=== PATIENT | female | born 1970 ===

== ENCOUNTER 2017-08-05 21:12 | Emergency (ER) | payer BC ==
[~2017-08-05] VITALS: Ht 157.5 cm; Wt 74.8 kg
--- NOTE | 2017-08-05 21:35 | NUR ---
Pt is received alert, responsive as she came in c/o itching and Hiva all over body. MD is at the bedside as her care continue.
--- NOTE | 2017-08-05 21:51 | NUR ---
Pt remain alert, responsive with Benadry 50mg po, Pepcid 20mg po, Prednisone 50mg po noted effective as she is been monitor closely.
[2017-08-05 22:17] VITALS: BP 142/86
--- NOTE | 2017-08-05 22:18 | NUR ---
Pt is been discharge to home with prescriptions off Pepcid 40mg 1tab daily po and Prednisone 50mg po daily as she is stable with no s/s off distress.
== END 2017-08-05 22:20 | disposition home or self-care (01) ==
LOC: ER 21:12
DX: T78.40XA Allergy, unspecified, initial encounter (principal); X58.XXXA Exposure to other specified factors, initial encounter
CPT/HCPCS: A4663; J7512; Q0163